=== PATIENT | male | born 1995 | race Caucasian/White ===

== ENCOUNTER 2016-08-02 21:08 | Emergency (ER) | payer SELFPAY ==
[~2016-08-02] VITALS: Ht 165.1 cm; Wt 92.0 kg
[~2016-08-02 21:08] MED LIST: LAMISIL250 MG OR; MEDDOSEPAK OR; MEDDOSEPAK PO; NASONEX50 MCG/AC; PROVENTIL IN; VENTOLIN HFA IN; ZPAK OR
[2016-08-02] MEDS ORDERED: PREDNISONE10 MG PO (21:46)
[2016-08-02] MEDS ORDERED: ZITHROMAX250 MG PO (21:46)
[2016-08-02] MEDS ORDERED: VENTOLIN HFA IN (21:46)
--- NOTE | 2016-08-02 22:22 | NUR ---
BREATHING TREATMENT GIVEN. IT WAS EXPLAINT TO THE PATIENT HOW TO BREATH DEEPLY FOR GOOD DEPOSITION TO THE LUNGS.
[2016-08-02 22:55] VITALS: BP 137/73
== END 2016-08-02 22:55 | disposition home or self-care (01) | DRG 203 ==
LOC: ED 21:08
DX: J40 Bronchitis, not specified as acute or chronic (principal)

== ENCOUNTER 2019-10-09 21:00 | Emergency (ER) | payer SELFPAY ==
[~2019-10-09] VITALS: Ht 165.1 cm; Wt 97.7 kg
[~2019-10-09 21:00] MED LIST changes: +PREDNISONE10 MG PO; +ZITHROMAX250 MG PO
[2019-10-09] MEDS ORDERED: TRAMADOL HCL50 MG PO (21:25)
[2019-10-09] MEDS ORDERED: SILVADENE1 % EX (21:25)
[2019-10-09] MEDS ORDERED: MOTRIN800 MG PO (21:25)
[2019-10-09 22:15] VITALS: BP 131/89
== END 2019-10-09 22:15 | disposition home or self-care (01) | DRG 935 ==
LOC: ED 21:00
PROC: 2W24X4Z Dressing of Chest Wall using Bandage (ICD-10-PCS; principal; 2019-10-09)
PROC: 2W22X4Z Dressing of Neck using Bandage (ICD-10-PCS; 2019-10-09)
PROC: 2W2DX4Z Dressing of Left Lower Arm using Bandage (ICD-10-PCS; 2019-10-09)
PROC: 2W2FX4Z Dressing of Left Hand using Bandage (ICD-10-PCS; 2019-10-09)
DX: T20.27XA Burn of second degree of neck, initial encounter (principal); T21.21XA Burn of second degree of chest wall, initial encounter; T23.252A Burn of second degree of left palm, initial encounter; T22.112A Burn of first degree of left forearm, initial encounter; T31.0 Burns involving less than 10% of body surface; X10.2XXA Contact with fats and cooking oils, initial encounter; Y93.89 Activity, other specified; Y92.511 Restaurant or cafe as the place of occurrence of the external cause; Y99.0 Civilian activity done for income or pay